=== PATIENT | female | born 1970 | race Caucasian/White ===

== ENCOUNTER → 2016-06-29 | Outpatient (CLI) | payer OTHER ==
--- NOTE | 2016-06-29 16:12 | MAMMOGRAPHY REPORT ---
BILATERAL FIRST EVER DIGITAL SCREENING MAMMOGRAM TOMOSYNTHESIS WITH CAD: 06/29/2016 CLINICAL HISTORY: Routine screening. Baseline exam. TECHNIQUE: Breast tomosynthesis in addition to standard 2D mammography was performed. Current study was also evaluated with a Computer Aided Detection (CAD) system. COMPARISON: No prior exams were available for comparison. BREAST COMPOSITION: The tissue of both breasts is heterogeneously dense, which may obscure small ma sses. FINDINGS: There is a partially visualized 5 mm asymmetry seen within the left superior posterior br east overlying the pectoralis muscle on the MLO view, for which spot compression tomosynthesis views , left XCCL view, and possible breast ultrasound are recommended for further evaluation. Additional ly, there is a possible oval mass in the left breast along the posterior nipple line on the cc tomos ynthesis images which measures at least 11 mm, for which spot compression tomosynthesis views and po ssible breast ultrasound are recommended. The remainder of both breasts are negative, without suspicious masses, calcifications, or areas of a rchitectural distortion noted. IMPRESSION: ACR BI-RADS CATEGORY 0: INCOMPLETE EVALUATION: NEED ADDITIONAL IMAGING EVALUATION Left breast asymmetry and possible right breast mass, for which additional imaging evaluation is rec ommended. The patient will be called to schedule an appointment. Approximately 10% of breast cancers are not detected with mammography. A negative mammographic repor t should not delay biopsy if a clinically suggestive mass is present. Dinora Shelley M.D. /:06/29/2016 15:43:19 Band Instrument Repairer: Hyun BAEZ(Yara)(Paul)(ROMI), [facility] letter sent: Addl Imaging 0 BI-RADS Code: ACR BI-RADS Category 0: Incomplete Evaluation: Need Additional Imaging Evaluation
== END | disposition home or self-care (01) ==
LOC: C.MAMM 13:55
PROVIDERS: ATTEND Obstetrics & Gynecology
DX: Z12.31 Encounter for screening mammogram for malignant neoplasm of breast (principal); N64.89 Other specified disorders of breast

== ENCOUNTER → 2016-07-28 | Outpatient (CLI) | payer OTHER ==
--- NOTE | 2016-07-28 16:45 | MAMMOGRAPHY REPORT ---
BILATERAL DIGITAL DIAGNOSTIC MAMMOGRAM TOMOSYNTHESIS AND TARGETED RIGHT ULTRASOUND: 07/28/2016 CLINICAL HISTORY: Callback from screening mammogram for left breast asymmetry and possible right nani ast mass. TECHNIQUE: Breast tomosynthesis in addition to standard 2D mammography was performed. Spot abe jarred right CC tomosynthesis spot compression views and spot compression left MLO 2-D and tomosynthes is images were obtained. COMPARISON: Comparison is made to exam dated: 06/29/2016 mammogram - [facility]. BREAST COMPOSITION: The tissue of both breasts is heterogeneously dense, which may obscure small ma sses. FINDINGS: The previously described asymmetry seen within the left superior posterior breast effaces on the additional spot compression views and is compatible with normal fibroglandular tissue. The previously described possible right breast mass does not clearly persist on the additional views; th is region has the appearance of normal fibroglandular tissue on the spot compression views. Targeted ultrasound was performed of the right breast at 12:00, 6:00, and subareolar breast as well as right slightly medial breast in the region of the possible right breast mass. In the right breas t at 12:00, 5 cm from the nipple, there is a slightly hypoechoic oval parallel mass which measures 5 x 3 x 7 mm. The mass is felt to be incidentally noted and does not correlate with the original paola mographic asymmetry. The mass is indeterminate and ultrasound-guided core needle biopsy is recommen ded for further evaluation. The differential includes a normal fat lobule or fibroadenoma. IMPRESSION: ACR BI-RADS CATEGORY 4: SUSPICIOUS, TARGETED ULTRASOUND ACR BI-RADS CATEGORY 4: SUSPICI OUS 1. Hypoechoic 7 mm mass in the right breast at 12:00, incidentally noted on ultrasound. The mass i s indeterminate and ultrasound-guided core needle biopsy is recommended for further evaluation. Thi s may represent a normal fat lobule or potentially a fibroadenoma. 2. The bilateral mammographic asymmetries efface on the additional views, and are benign and felt t o represent normal fibroglandular tissue. The patient has been verbally notified of the results. She tentatively scheduled the biopsy before leaving the department. Approximately 10% of breast cancers are not detected with mammography. A negative mammographic repor t should not delay biopsy if a clinically suggestive mass is present. Dinora Shelley M.D. /:07/28/2016 14:45:49 Encyclopedia Research Worker: Fior BANDA)(Paul), [facility] letter sent: Abnormal 4/5 BI-RADS Code: ACR BI-RADS Category 4: Suspicious Ultrasound BI-RADS: ACR BI-RADS Category 4: Suspic ious
== END | disposition home or self-care (01) ==
LOC: C.MAMM 14:01
PROVIDERS: ATTEND Obstetrics & Gynecology
DX: N63 Unspecified lump in breast (principal)

== ENCOUNTER → 2016-08-11 | Outpatient (CLI) | payer OTHER ==
--- NOTE | 2016-08-11 09:12 | Discharge Instructions ---
Discharge Instructions Procedure Procedure Date: Aug 11, 2016. Reason for visit: Right Mass. Discharge Discharge Date: Aug 11, 2016. Discharge Diagnosis: status post breast biopsy Instructions Activity Recommendations: Additional Limitations (see below) Return to School/Work: no limitations Recommended Home Diet: No Limitations Provider Instructions: ACTIVITY RECOMMENDATIONS: * No lifting, pushing, pulling or exercising the affected side for three days. RETURN TO SCHOOL/WORK: * You may return to work/school after the procedure, but do not perform any strenuous activities for 24 to 48 hours. MEDICATIONS: * Tylenol (two 325 mg) every four to six hours if needed for mild pain (if not allergic to Tylenol). DIET: * Resume previous diet. SPECIAL CARE INSTRUCTIONS: * Keep biopsy site dry for 24 hours. May shower after 24 hours, but do not soak (bathe) incision. * May remove Tegaderm (plastic patch) tomorrow AFTER showering. * Leave the steri-strips on for one week. Allow the steri-strips to fall off by themselves. If not off after one week, you may remove them. You may place a Bandaid crosswise over the strips, if desired. * Apply ice 10 minutes on and 10 minutes off as needed. * Wear a bra at bedtime to sleep more comfortably for 2-3 days. * Your referring physician should have the results after approximately 5 to 7 business days. * Call for unusual bleeding, fever, drainage, etc or if you have any questions call during normal business hours or after hours call Dr Shelley, . FOLLOW UP VISIT: Follow-up with Referring Physician as scheduled. Araceli Baptistey Recommendations: Call your doctor if: * Temperature above 101 degrees * Pain not relieved by pain medicine ordered * There is increased drainage or redness from any incision * You have any unanswered questions or concerns. Your Doctors Instructions noted above were prepared by provider Dinora Shelley. Patient Signature Section: Patient Instructions Signature Page Lubna De La Cruz Patient (or Guardian) Signature/Date: I have read and understand the instructions given to me by my caregivers. Caregiver/RN/Doctor Signature/Date: The above-named patient and/or guardian has received patient instructions on this date. + Original Patient Signature Page (only) stays with chart. Please make copy for patient.
--- NOTE | 2016-08-11 13:56 | MAMMOGRAPHY REPORT ---
ULTRASOUND GUIDED BIOPSY RIGHT BREAST: 08/11/2016 CLINICAL HISTORY: Right 12:00 breast mass. PATIENT CONSENT: The procedure, risks and benefits were discussed with the patient and informed writ ten consent was obtained. A timeout was performed immediately prior to the procedure. PROCEDURE DESCRIPTION: With ultrasound guidance, aseptic technique, and lidocaine as the local anest hetic (1% lidocaine to anesthetize the skin and 1% lidocaine with epinephrine to anesthetize the neil per tissues), the mass of concern in the right 12:00 breast was sampled 5 times with a 14-gauge Achi cortez biopsy needle. Immediately thereafter, with ultrasound guidance, aseptic technique, and lidocai ne as the local anesthetic, a metallic localizer clip was placed centrally at the biopsy site. Dire ct pressure was applied to the site immediately post procedure and hemostasis was achieved. Postpro cedure unilateral mammograms were performed to confirm placement of the clip in the expected locatio n of the breast mass. The patient tolerated the procedure without complication. She was given woun d care instructions. The specimens were sent to pathology for analysis. COMPARISON: Comparison is made to exams dated: 07/28/2016 mammogram, 07/28/2016 ultrasound, and 2016 mammogram - [facility]. IMPRESSION: ULTRASOUND GUIDED BIOPSY Ultrasound-guided core needle biopsy of the right 12:00 breast mass, with clip placement. The patie nt will receive pathology results from her referring provider. Dinora Shelley M.D. ah/:08/11/2016 09:16:08 Assorter Laundry: Fior BANDA)(Paul), [facility]
--- NOTE | 2016-08-11 13:58 | MAMMOGRAPHY REPORT ---
UNILATERAL RIGHT DIGITAL DIAGNOSTIC MAMMOGRAM: 08/11/2016 CLINICAL HISTORY: Status post ultrasound guided biopsy of the right 12:00 breast mass. TECHNIQUE: Postprocedural right CC and ML views were obtained. COMPARISON: Comparison is made to exams dated: 07/28/2016 ultrasound, 06/29/2016 mammogram, and 2016 mammogram - [facility]. BREAST COMPOSITION: The tissue of the right breast is heterogeneously dense, which may obscure smal l masses. FINDINGS: A new biopsy marker clip is seen at the site of the biopsied right 12:00 breast mass. No significant postbiopsy hematoma is seen. IMPRESSION: POST PROCEDURE IMAGING FOR MARKER PLACEMENT New biopsy marker clip status post ultrasound guided biopsy of the right 12:00 breast mass. Patholo gy results are pending. Approximately 10% of breast cancers are not detected with mammography. A negative mammographic repor t should not delay biopsy if a clinically suggestive mass is present. Dinora Shelley M.D. ah/:08/11/2016 09:19:21 Paper Tube Cutter: Fior BANDA)(Paul), [facility] BI-RADS Code: Post Procedure Imaging For Marker Placement
== END | disposition home or self-care (01) ==
LOC: C.MAMM 08:38
PROVIDERS: ATTEND Obstetrics & Gynecology
DX: N63 Unspecified lump in breast (principal)

== ENCOUNTER → 2017-01-10 | Outpatient (CLI) | payer OTHER | END | disposition home or self-care (01) | LOC: C.LABSPEC 17:37 | PROVIDERS: ATTEND Physician Assistant | DX: N94.9 Unspecified condition associated with female genital organs and menstrual cycle (principal) ==

== ENCOUNTER → 2017-07-02 | Outpatient (CLI) | payer OTHER ==
--- NOTE | 2017-07-03 07:51 | MAMMOGRAPHY REPORT ---
BILATERAL DIGITAL SCREENING MAMMOGRAM TOMOSYNTHESIS WITH CAD: 07/02/2017 CLINICAL HISTORY: Routine screening. Patient has no complaints. TECHNIQUE: Breast tomosynthesis in addition to standard 2D mammography was performed. Current study was also evaluated with a Computer Aided Detection (CAD) system. COMPARISON: Comparison is made to exams dated: 08/11/2016 mammogram, 07/28/2016 mammogram, and 06/29/19 17 mammogram - [facility]. BREAST COMPOSITION: The tissue of both breasts is extremely dense, which lowers the sensitivity of m ammography. FINDINGS: There is a stable ribbon-shaped biopsy marker clip in the 12:00 posterior right breast. Th e glandular pattern is similar to the 2017 mammograms. No obvious new mass, architectural distortion or cluster of microcalcifications is seen. IMPRESSION: ACR BI-RADS CATEGORY 1: NEGATIVE There is no mammographic evidence of malignancy. A 1 year screening mammogram is recommended. The pa tient will receive written notification of the results. Approximately 10% of breast cancers are not detected with mammography. A negative mammographic report should not delay biopsy if a clinically suggestive mass is present. Dana Alexandra M.D. ay/:07/02/2017 16:30:32 Pump Servicer: Hyun BAEZ(Yara)(Paul)(BD), [facility] letter sent: Normal 1/2 BI-RADS Code: ACR BI-RADS Category 1: Negative
== END | disposition home or self-care (01) ==
LOC: C.MAMM 13:06
PROVIDERS: ATTEND Obstetrics & Gynecology
DX: Z12.31 Encounter for screening mammogram for malignant neoplasm of breast (principal)